=== PATIENT | female | born 1965 | race Caucasian/White ===

== ENCOUNTER 2017-08-06 07:19 | Inpatient (IN) | payer OTHER ==
[~2017-08-06 07:19] MED LIST: Buffered Lidocaine 0.9% SYRIN* 5 ML/SYR SYRINGE INTRADERM ONE; Famotidine IV* 10 MG/ML 2 ML (20 mg) IV ONE; Oxymetazoline 0.05% NASAL SPR* 15 ML BTL BOTH NARES ONE; Scopolamine 1.5 mg* PATCH TRANSDERM ONE
[2017-08-06] MEDS ORDERED: Oxymetazoline 0.05% NASAL SPR* 15 ML BTL ONE (07:26)
[2017-08-06] MEDS ORDERED: Heparin VIAL(*) 5000 UNITS/ML VIAL (FIVE THOUSAND) ONE (07:26)
[2017-08-06] MEDS ORDERED: Scopolamine 1.5 mg* PATCH ONE (07:26)
[2017-08-06] MEDS ORDERED: Famotidine IV* 10 MG/ML 2 ML (20 mg) ONE (07:26)
[2017-08-06] MEDS ORDERED: ceFAZolin 2 GM PREMIX (*) 2 GM/50 ML BAG IVPB ONE (07:26)
[2017-08-06] MEDS ORDERED: ceFAZolin 1 GM ADVAN(*) 1 GM ADDV.VIAL IVPB ONE (07:27)
[2017-08-06] MEDS ORDERED: Clindamycin 900 MG IVPREMIX(* 900 MG/50 ML SDV IV ONE (07:57)
[2017-08-06] MEDS ORDERED: Midazolam* 1 MG/ML 10 ML VIAL (10 MG) ONE (08:14)
[2017-08-06] MEDS ORDERED: fentaNYL* 50 MCG/ML 2 ML VIAL (100 MCG VIAL) ONE ×3 (08:14→10:17)
[2017-08-06] MEDS ORDERED: Rocuronium* 10 MG/ML VIAL ONE ×2 (08:21→09:33)
[2017-08-06] MEDS ORDERED: Bupivacaine 0.25% SDV* 30 ML ONE ×2 (09:24→10:28)
[2017-08-06] MEDS ORDERED: Methylene Blue 0.5 %* 50 MG/10 ML AMP IV ONE (09:24)
[2017-08-06] MEDS ORDERED: DiMENhydriNATE IV* 50 MG/ML VIAL ONE (10:48)
[2017-08-06] MEDS ORDERED: Propofol* 10 MG/ML 20 ML BTL IV PUSH ONE (10:48)
[2017-08-06] MEDS ORDERED: Ondansetron INJ* 2 MG/ML VIAL ONE (10:48)
[2017-08-06] MEDS ORDERED: Dexamethasone IV* 4 MG/ML 1 ML (4 MG) ONE (10:48)
[2017-08-06] MEDS ORDERED: Ketorolac INJ* 30 MG/ML 1 ML VIAL ONE ×2 (10:48→15:17)
[2017-08-06] MEDS ORDERED: Lidocaine 2% PF * 5 ML VIAL ONE (10:49)
[2017-08-06] MEDS ORDERED: Acetaminophen IV 1GM/100ML * 1,000 MG/100 ML VIAL IVPB ONE (10:59)
[2017-08-06] MEDS ORDERED: Levalbuterol 0.63MG/3ML NEB* UNIT OF USE INH PRN (10:59)
[2017-08-06] MEDS ORDERED: DiMENhydriNATE IV* 50 MG/ML VIAL IV PUSH PRN (10:59)
[2017-08-06] MEDS ORDERED: HYDROmorphone INJ* 1 MG/ML CARPUJECT SYRINGE ONE ×3 (11:52→13:53)
[2017-08-06] MEDS ORDERED: Acetaminophen IV 1GM/100ML * 100 ML ONE (12:23)
[2017-08-06] MEDS ORDERED: Ondansetron INJ* 2 MG/ML VIAL IV PRN (12:38)
[2017-08-06] MEDS ORDERED: HYDROmorphone INJ* 1 MG/ML CARPUJECT SYRINGE IV PRN (12:38)
[2017-08-06] MEDS ORDERED: Albuterol HFA INHALER* 8 gm MDI INH PRN (12:45)
--- NOTE | 2017-08-06 12:52 | PN ---
Progress Note - Progress Note Date of Service: 08/06/17 Note: Brief Operative Note: Pre-op: Severely morbid obesity Post-op: Same Procedure: Laparoscopic Frances-en-Y gastric bypass Surgeon: Dr. Herrera [facility] Supervisor: CAMILLA Christie Anaesthesia: GETA Fluids: LR 2500 cc Catheter: Brizuela to gravity Urine: 400 cc EBL: <50 cc Specimen: None Drains: BOGDAN to self-suction Findings: See dictated op note
[2017-08-06] MEDS: HYDROmorphone INJ* 1 MG/ML CARPUJECT SYRINGE IV PRN ×3 (13:11→13:54)
[2017-08-06] MEDS ORDERED: Pantoprazole IV* 40 MG ONE (15:17)
[2017-08-06] MEDS: Ketorolac INJ* 30 MG/ML 1 ML VIAL IV PRN ×2 (15:35→21:07)
[2017-08-06] MEDS: Pantoprazole IV* 40 MG IV SCH (15:36)
[2017-08-06] MEDS: Heparin VIAL(*) 5000 UNITS/ML VIAL (FIVE THOUSAND) SUBCUT SCH (21:10)
--- NOTE | 2017-08-07 05:31 | OP ---
CC: Etelvina Nava NP; [facility] * DATE OF OPERATION: 08/06/17 - ROOM #353 DATE OF : 61 SURGEON: Jermaine Herrera MD. SPONSORSHIP MANAGER: CAMILLA Stephens. ANESTHESIOLOGIST: Yanet Davenport MD. ANESTHESIA: General endotracheal. PRE-OP DIAGNOSIS: Clinically severe obesity. POST-OP DIAGNOSIS: Clinically severe obesity. OPERATIVE PROCEDURE: Laparoscopic Frances-en-Y gastric bypass. ESTIMATED BLOOD LOSS: Less than 50 mL. IV FLUIDS: 2.5 L of crystalloid. SPECIMEN: None. DRAINS: 7-mm Eduin Timmons. COMPLICATIONS: None. COUNTS: Instrument, needle, and sponge counts were correct. DESCRIPTION OF PROCEDURE: The patient was brought to the operative room, placed on the table supine. Sequential compression devices were placed on both lower extremities and general anesthesia was administered. Brizuela catheter was placed. She was positioned and padded appropriately. Intravenous antibiotics were administered and prep and drape was performed. Time-out was performed. Local anesthetic was infiltrated into the skin and soft tissue prior to making each incision. Entry into the abdomen was through a left upper quadrant incision accommodating a 12 mm optical trocar. After accessing the peritoneal cavity, carbon dioxide was insufflated to a pressure of 15 mmHg. Under direct visualization, 12 mm trocars were placed in the supraumbilical midline and left upper quadrant. The patient had a thick abdominal wall, necessitating the use of extended length trocars in the supraumbilical position and also in the right upper quadrant for the 5 mm trocar that was placed medially. A 5 mm trocar was also placed laterally in the left upper quadrant and Mabel liver retractor was placed percutaneously in the subxiphoid position and utilized to elevate the left lobe of the liver. The gastric anatomy appeared normal. The spleen appeared to be enlarged. There were some adhesions of omentum in the pelvis and this was lysed with LigaSure until the omentum was free. Initial maneuvers were to mobilize the fundus of the stomach away from the spleen and this was performed by dividing the upper most short gastric vessels and ultimately the stomach was mobilized away from the left mandy of the diaphragm. Next, a perigastric dissection was undertaken on the lesser curvature to enter the lesser sac, and then with several firings of the EndoGIA stapler with cramer cartridges, a gastric pouch was created, approximately 15 to 30 mL volume. Staple lines were noted to be intact and hemostatic. Next, the omentum was retracted superiorly. It was divided down the midline with LigaSure. The transverse colon was retracted superiorly and the ligament of Treitz was identified. The jejunum was then measured out 40 to 50 cm and this loop of jejunum was sutured to the lateral aspect of the gastric pouch with 2-0 silks. Then the gastrojejunal anastomosis was performed using an EndoGIA stapler with 30 mm staple cartridge, closing the common enterotomy over a 36- Panamanian gastric lavage tube with 3-0 PDS. The jejunal loop was divided to the left of the anastomosis completing the gastrojejunal anastomosis. The orogastric tube was then positioned across the anastomosis and the anastomosis was tested with methylene blue dye solution instilled through the tube. No leak was identified. The tube was removed. A 75 cm Frances limb was then measured out and an end-to-side jejunojejunostomy was performed with EndoGIA stapler with cramer 60 mm cartridge. Common enterotomy was run closed with 3-0 PDS. Anti-obstruction structures of 3-0 silk were placed proximally and distally to the anastomosis. The mesenteric defect was run closed with 3-0 silk. Lastly, hemostasis was assured. Staple lines were noted to be intact and inspection of the Frances limb revealed its orientation to be proper. 7 mm BOGDAN drain was placed into the abdomen and positioned at the gastrojejunal anastomosis. The drain was withdrawn through the left upper quadrant 5 mm trocar site and sutured there with 3-0 Prolene. It was placed to a suction bulb after all the ports had been removed and carbon dioxide released. Skin incisions were closed with bandar and dressings were applied. The patient was extubated uneventfully and transferred to Recovery in stable condition. [id number]/[facility] #: [id number] HERIBERTO
[2017-08-07] MEDS: Heparin VIAL(*) 5000 UNITS/ML VIAL (FIVE THOUSAND) SUBCUT SCH ×3 (06:03→19:58)
[2017-08-07] MEDS: Ketorolac INJ* 30 MG/ML 1 ML VIAL IV PRN ×2 (09:18→19:51)
[2017-08-07] MEDS ORDERED: HYDROcodone/ACET. 7.5/325 LIQ* 15 ML UDC PO PRN ×2 (11:29)
[2017-08-07] MEDS: D5W 1/2 NS KCl 20 Meq 1000 ML* 1,000 ML IV SCH (11:31)
--- NOTE | 2017-08-07 12:43 | PN ---
Progress Note - Progress Note Date of Service: 08/07/17 Note: Surgery Progress: S: POD #1. Min pain. No N/V, SOB. No flatus. Ambulating. Voiding. O: Vital Signs - 8 hr 08/07/17 08/07/17 08/07/17 05:33 06:00 07:58 Temperature 98.2 F Pulse Rate 74 Respiratory 18 18 Rate Blood Pressure 128/66 (mmHg) O2 Sat by Pulse 96 98 99 Oximetry 08/07/17 08/07/17 08:00 09:24 Temperature Pulse Rate Respiratory 16 Rate Blood Pressure (mmHg) O2 Sat by Pulse 95 97 Oximetry Intake and Output Last 24 Hours 08/05/17 08/06/17 08/07/17 08/08/17 06:59 06:59 06:59 06:59 Intake Total 4401 Output Total 2035 Balance 2366 Weight 365 lb 3.2 oz Intake: IV Fluids 4401 LR 4401 Oral 0 Output: BOGDAN #1 235 Urine 750 Brizuela 950 Estimated Blood Loss 100 Other: Estimated Void Large # Bowel Movements 0 PE: Heart: reg Lungs: clear Abd: +BS; lap incisions ok; soft; min incisional tenderness; BOGDAN: mod large amts of serosang drainage A: doing well s/p lap RYGB P: start martha clears; cont ambulation. Prob d/c 08/08.
[2017-08-07] MEDS: Pantoprazole IV* 40 MG IV SCH (12:54)
[2017-08-07] MEDS: Levothyroxine TAB* 88 MCG TAB PO SCH (12:54)
[2017-08-08] MEDS: D5W 1/2 NS KCl 20 Meq 1000 ML* 1,000 ML IV SCH (00:23)
[2017-08-08] MEDS: Ketorolac INJ* 30 MG/ML 1 ML VIAL IV PRN (05:32)
[2017-08-08] MEDS: Levothyroxine TAB* 88 MCG TAB PO SCH (05:33)
[2017-08-08] MEDS: Heparin VIAL(*) 5000 UNITS/ML VIAL (FIVE THOUSAND) SUBCUT SCH (05:33)
--- NOTE | 2017-08-08 09:18 | PN ---
Progress Note - Progress Note Date of Service: 08/08/17 Note: Surgery Progress: (seen and examined by Dr. Herrera this a.m.) S: POD #2. Doing well. Little pain. Blanca clears well. Passing flatus. Ambulating. O: Vital Signs - 8 hr 08/08/17 08/08/17 02:11 03:54 Temperature 98.8 F Pulse Rate 82 Respiratory 18 Rate Blood Pressure 119/56 (mmHg) O2 Sat by Pulse 94 95 Oximetry Intake and Output Last 24 Hours 08/06/17 08/07/17 08/08/17 08/09/17 06:59 06:59 06:59 06:59 Intake Total 4401 1472 Output Total 2035 3393 Balance 2366 -1921 Weight 365 lb 3.2 oz Intake: IV Fluids 4401 932 [id number] 932 LR 4401 Oral 0 540 Output: BOGDAN #1 235 193 Urine 750 3200 Brizuela 950 Estimated Blood Loss 100 Other: Estimated Void Large Large # Bowel Movements 0 # Voids 1 Heart: reg Lungs: clear ant Abd: lap sites look good; BOGDAN: serosang-> d/c'd; soft; no sig tenderness A: s/p lap RYGB, doing well P: home today; instructions reviewed
[2017-08-08 11:31] VITALS: BP 120/61
--- NOTE | 2017-08-08 21:01 | DS ---
CC: Etelvina Nava NP, [facility] * DISCHARGE SUMMARY: DATE OF ADMISSION: 08/06/17 DATE OF DISCHARGE: 08/08/17 ATTENDING SURGEON: Jermaine Herrera MD * (DICTATED BY CAMILLA BUSTILLO) HOSPITAL COURSE: Please refer to admission history and physical for admission details. The patient was taken to the operating room on 08/06/17 and underwent laparoscopic Frances-en-Y bypass with Dr. Herrera (see separate operative report). She has had an otherwise unremarkable postoperative course with gradual improvement in pain and tolerance of bariatric clear liquids. She is ambulating and voiding well. PHYSICAL EXAMINATION: On the morning of discharge, temperature 98.8, blood pressure 119/56, pulse 82, respirations 18, room air saturation 95%. Heart: Regular rate and rhythm. Lungs: Clear anteriorly. Abdomen: Laparoscopic port sites are clean without evidence of bleeding or infection. BOGDAN drain was removed and dry sterile dressing placed. Abdomen is otherwise soft and with minimal incisional tenderness. IMPRESSION: Status post laparoscopic Frances-en-Y gastric bypass, doing well. PLAN: Home today. Instructions were reviewed regarding wound care, diet, and activity. She will resume her home medications with the exception that lisinopril will be on hold until she has followup to follow her blood pressures. She has a followup scheduled with the [facility] for Metabolic and Bariatric surgery. She was also seen and examined this morning by Dr. Herrera. CAMILLA BUSTILLO [id number]/[facility] #: [id number] MTDD
[2017-08-09] MEDS ORDERED: Scopolamine PATCH Remove* 1 NOTE MISC PATCH OFF ONE (06:00)
== END 2017-08-08 11:50 | disposition home or self-care (01) | DRG 403 ==
LOC: AA 07:19 → SSU 15:15
PROVIDERS: ADMIT Surgery; ATTEND Surgery
PROC: 0D164ZA Bypass Stomach to Jejunum, Percutaneous Endoscopic Approach (ICD-10-PCS; principal; 2017-08-06 08:45)
DX: E66.01 Morbid (severe) obesity due to excess calories (principal); E03.9 Hypothyroidism, unspecified; I10 Essential (primary) hypertension; M17.11 Unilateral primary osteoarthritis, right knee; G47.33 Obstructive sleep apnea (adult) (pediatric); I89.0 Lymphedema, not elsewhere classified; K44.9 Diaphragmatic hernia without obstruction or gangrene; Z83.3 Family history of diabetes mellitus; Z82.49 Family history of ischemic heart disease and other diseases of the circulatory system; Z80.0 Family history of malignant neoplasm of digestive organs; Z80.41 Family history of malignant neoplasm of ovary; Z83.49 Family history of other endocrine, nutritional and metabolic diseases; Z68.44 Body mass index [BMI] 60.0-69.9, adult; Z98.51 Tubal ligation status
CPT/HCPCS: 43644; 94760; A9270-GY; C1776; J0690; J1100; J1170; J1240; J1644; J1885; J2250; J2405; J2704; J3010

== ENCOUNTER 2023-08-05 14:58 | Observation (INO) ==
[2023-08-05 15:23] LABS: ABS Basophils 0.1 10^3/uL (0.0-0.1); ABS Eosinophils 0.2 10^3/uL (0.0-0.5); ABS Lymphocytes 0.9 10^3/uL (1.0-4.8); ABS Monocytes 0.7 10^3/uL (0.0-0.9); ABS Neutrophils 6.3 10^3/uL (1.5-7.6); Eosinophil % 2.2 %; Hematocrit 39.2 % (35-45); Hemoglobin 13.1 g/dL (11.5-14.3); Lymphocyte % 11.3 %; Mean Corpuscular Hemoglobin 29.1 pg (27-33); Mean Corpuscular Hgb Conc 33.5 g/dL (31-36); Mean Corpuscular Volume 86.9 fL (80-97); Mean Platelet Volume 6.6 fL (7.5-11.2); Platelet Count 280 10^3/uL (150-450); Red Blood Count 4.51 10^6/uL (3.63-4.92); Red Cell Distribution Width 14.3 % (12-17); White Blood Count 8.2 10^3/uL (3.8-11.8)
[2023-08-05 15:40] LABS: INR 0.99 (0.83-1.13)
[2023-08-05 15:45] LABS: Albumin 4.2 g/dL (3.2-5.2); Albumin/Globulin Ratio 1.4 (1-3); Calcium 9.3 mg/dL (8.6-10.3); Creatinine, Serum 0.61 mg/dL (0.51-0.95); Potassium 3.8 mmol/L (3.5-5.0); Total Bilirubin 0.4 mg/dL (0.2-1.0); Total Protein 7.2 g/dL (6.4-8.9); eGFR CKD-EPI 102.3 (>60)
[2023-08-05 17:36] LABS: High Sensitivity Troponin 1 Hr 56 pg/mL (<15)
[2023-08-05] MEDS ORDERED: Iohexol 350 (CONTRAST) 500 ML MDV IV ONE (19:15)
[2023-08-05 19:23] LABS: T4, Total 9.61 mcg/dL (6.09-12.23)
[2023-08-05 19:26] LABS: TSH Ultra Thyroid Stim Horm 2.25 mcIU/mL (0.34-5.60)
[2023-08-05 20:36] LABS: High Sensitivity Troponin 3 Hr 47 pg/mL (<15)
[2023-08-06 07:44] LABS: Creatinine, Serum 0.55 mg/dL (0.51-0.95); HDL Cholesterol 61.4 mg/dL; Potassium 3.6 mmol/L (3.5-5.0); eGFR CKD-EPI 104.9 (>60)
[2023-08-06 17:07] VITALS: BP 132/78
== END 2023-08-06 17:06 | disposition home or self-care (01) ==
LOC: EDHOLD 14:58 → ED 14:58 → SUATTDRO 22:13 → EDHOLD 08-06 09:57
PROVIDERS: ADMIT Student in an Organized Health Care Education/Training Program; ATTEND Internal Medicine